=== PATIENT | male | born 1940 ===

== ENCOUNTER 2021-05-23 08:10 | Outpatient (CLI) | payer OTHER | END 2021-05-23 08:13 | disposition home or self-care (01) | LOC: SONOGRAMA 08:10 | DX: R59.0 Localized enlarged lymph nodes (principal) ==

== ENCOUNTER 2021-12-12 08:02 | Outpatient (CLI) | payer OTHER | END 2021-12-12 08:03 | disposition home or self-care (01) | LOC: SONOGRAMA 08:02 | PROVIDERS: ATTEND Pathology Anatomic Pathology & Clinical Pathology | DX: E07.89 Other specified disorders of thyroid (principal) ==